=== PATIENT | male | born 1980 | race Caucasian/White ===

== ENCOUNTER 2020-09-12 07:22 | Day surgery (SDC) | payer OTHER ==
[~2020-09-12 07:22] MED LIST: Bupivacaine 0.5% 30 ML SDV ONE
[2020-09-12] MEDS ORDERED: ceFAZolin 2 GM in Premix Bag 1 BAG IV ONE (07:30)
[2020-09-12] MEDS ORDERED: Nozin Nasal Sanitizer NASBOTH ONE (07:30)
[2020-09-12] MEDS ORDERED: Lactated Ringers 1,000 ML IV SCH (08:30)
[2020-09-12] MEDS ORDERED: fentaNYL 250 MCG/5 ML SDV ONE (08:37)
[2020-09-12] MEDS ORDERED: Propofol 200 MG/20 ML SDV ONE (08:38)
[2020-09-12] MEDS ORDERED: Rocuronium 50 MG/5 ML Vial ONE (08:38)
[2020-09-12] MEDS ORDERED: Dexamethasone 4 MG/ML SDV ONE (08:38)
[2020-09-12] MEDS ORDERED: Succinylcholine 200 MG/10 ML MDV ONE (08:38)
[2020-09-12] MEDS ORDERED: Ondansetron 4 MG/2 ML SDV ONE (08:38)
[2020-09-12] MEDS ORDERED: Neostigmine Methylsulfate 1 MG/ML 5 ML Syringe ONE (08:38)
[2020-09-12] MEDS ORDERED: Glycopyrrolate 0.2 MG/ML 5 ML MDV ONE (08:38)
[2020-09-12] MEDS ORDERED: Midazolam 1 MG/ML 2 ML SDV ONE (09:50)
[2020-09-12] MEDS ORDERED: Acetaminophen/HYDROcodone 325-5 MG Tab PO ONE (12:30)
--- NOTE | 2020-09-25 17:23 | OR ---
DATE OF PROCEDURE: 09/12/2020 SURGEON: Waqar Bernstein MD PREOPERATIVE DIAGNOSES: 1. Medial meniscus tear, right knee. 2. Chronic patellar bursitis, right knee. POSTOPERATIVE DIAGNOSES: 1. Medial meniscus tear, a small posterior horn cleavage tear, right knee. 2. Chronic patellar bursitis. PROCEDURE: 1. Arthroscopy, right knee, with partial medial meniscectomy. 2. Open excision of patellar bursa. CNA HHA: SANJAY Duncan. ANESTHESIA: General. INDICATIONS: Panchito is a 40-year-old gentleman with a history of increasing medial knee pain with intermittent catching. He also has a history of chronic patellar bursitis which comes and goes in intensity, sometimes swelling up quite large and restricting his motion. Examination and imaging are consistent with a tear of the medial meniscus and a chronic bursitis. He now presents for arthroscopy of the knee with debridement of meniscus and open patellar bursectomy. Risks, benefits, potential complications of the procedure were discussed. PROCEDURE IN DETAIL: After adequate anesthesia was obtained, patient was placed supine with a tourniquet about the right upper thigh, right leg was prepped and draped in a sterile fashion. Leg was exsanguinated and tourniquet inflated to 300 mmHg pressure. A standard inferior, anterior, medial, and lateral portals were established. The patellofemoral groove was inspected, which revealed no evidence of articular cartilage damage to the patella or trochlea. Sweeping into the medial compartment, articular cartilage is intact and there is a small cleavage tear in the posterior horn as well as a mild fraying of the posterior root. Using a combination of a punch basket and shaver, posterior horn was debrided back to a stable margin. Minimal meniscal tissue was removed. All loose fragments were removed. Inspection then continued into the intercondylar notch, which revealed intact ACL and PCL. Lateral compartment showed no evidence of articular cartilage or meniscus damage. The knee was drained and scope was withdrawn. Attention then turned to the bursa where a longitudinal incision was made over the midportion of the knee and carried down into the bursa. This showed evidence of chronic bursitis with rolls and folds of synovium. Bursa was then resected using combination of 15 blade and Metzenbaum scissors. Once the bursa was fully resected, the tourniquet was deflated and bleeding was controlled with electrocautery. Incision was then closed with 2-0 Vicryl and a running 3-0 Monocryl and Steri-Strips. The arthroscopic port sites were closed with 3-0 Monocryl and Steri-Strips were applied. Prior to closure of the bursa, a small round drain was placed and brought out through a separate stab incision. Light compressive dressing was then applied and the drain was secured to a suction bulb. The patient tolerated procedure well, there were no complications, taken from the operating room in stable condition. Waqar Bernstein MD /[id number] [facility]ERI
== END 2020-09-12 13:09 | disposition home or self-care (01) ==
LOC: JP.SDS 07:22
PROVIDERS: ATTEND Specialist
DX: S83.241A Other tear of medial meniscus, current injury, right knee, initial encounter (principal); M70.41 Prepatellar bursitis, right knee; F17.200 Nicotine dependence, unspecified, uncomplicated
CPT/HCPCS: 27340; 29881; 36415; 80048; 85027; A9270; J0690; J1100; J2250; J2405; J2704; J3010; J3490; J7120; J0330; J2710

== ENCOUNTER → 2021-12-08 | Day surgery (SDC) | payer OTHER ==
[~2021-12-08] MED LIST changes: -Bupivacaine 0.5% 30 ML SDV ONE; +Bupivacaine 0.5% 50 ML MDV ONE; +Diphtheria,Pertussis(Acell),Tetanus Vaccine 0.5 ML Syringe IM ONE; +Lidocaine 1% 5 ML VIAL INJECT ONE; +Lidocaine 1% with EPINEPHrine 1:100,000 50 ML MDV ONE; +Midazolam 1 MG/ML 2 ML SDV ONE; +Propofol 200 MG/20 ML SDV ONE; +ceFAZolin 1 GM Vial ONE; +fentaNYL 100 MCG/2 ML SDV ONE
== END ==
LOC: JP.ED 14:18 → JP.SDS 16:55
PROVIDERS: ATTEND Surgery
DX: S70.352A Superficial foreign body, left thigh, initial encounter (principal); Z01.812 Encounter for preprocedural laboratory examination; Z20.822 Contact with and (suspected) exposure to COVID-19; X58.XXXA Exposure to other specified factors, initial encounter
CPT/HCPCS: 10121; 73552-LT; 76000; 90471; 90715; 99283; 99284-25; J0690; J2250; J2704; J3010; J3490; U0002

== ENCOUNTER 2024-02-18 11:30 | Emergency (ER) | payer OTHER | END 2024-02-18 12:44 | disposition home or self-care (01) | LOC: JP.ED 11:30 | DX: L02.12 Furuncle of neck (principal); Z88.8 Allergy status to other drugs, medicaments and biological substances | CPT/HCPCS: 99283 ==

== ENCOUNTER 2024-02-23 07:14 | Inpatient (IN) | payer OTHER ==
[2024-02-23] MEDS: Sodium Chloride 0.9% 1,000 ML IV SCH ×2 (07:42→09:02)
[2024-02-23 07:44] LABS: BASOPHILS ABSOLUTE AUTO 0.05 K/uL (0.00-0.10); BASOPHILS PERCENT AUTO 0.7 % (0.1-1.3); EOSINOPHILS ABSOLUTE AUTO 0.11 K/uL (0.00-0.40); EOSINOPHILS PERCENT AUTO 1.4 % (0.0-5.4); HEMATOCRIT 40.4 % (38.4-49.7); HEMOGLOBIN 14.5 g/dL (12.9-16.9); IMMATURE GRAN ABSOLUTE AUTO 0.02 K/uL (0.00-0.23); IMMATURE GRAN PERCENT AUTO 0.3 % (0.0-0.7); LYMPHOCYTES ABSOLUTE AUTO 0.92 K/uL (0.8-3.3); MEAN CORPUSCULAR HEMOGLOBIN 31.3 pg (31.6-35.5); MEAN CORPUSCULAR HGB CONC 35.9 g/dL (31.6-35.5); MEAN CORPUSCULAR VOLUME 87.3 fL (81.4-99.0); MONOCYTES ABSOLUTE AUTO 0.98 K/uL (0.20-0.90); MONOCYTES PERCENT AUTO 12.8 % (3.3-12.6); NEUTROPHILS ABSOLUTE AUTO 5.57 K/uL (1.0-7.6); NEUTROPHILS PERCENT AUTO 72.8 % (40.0-78.1); PLATELET COUNT,PLT 299 K/uL (130-375); RED BLOOD CELL COUNT 4.63 M/uL (4.14-5.76); WHITE BLOOD CELL COUNT,WBC 7.7 K/uL (3.2-11.0)
[2024-02-23] MEDS: Ondansetron 4 MG/2 ML SDV IVPUSH ONE (07:44)
[2024-02-23] MEDS: Ketorolac 15 MG/ML SDV IVPUSH ONE (07:47)
[2024-02-23 07:54] LABS: ALANINE AMINOTRANSFERASE,ALT 32 U/L (12-78); ALBUMIN 3.7 g/dL (3.4-5.0); ALKALINE PHOSPHATASE 87 U/L (46-116); ASPARTATE AMNIOTRANSFERASE,AST 19 U/L (15-37); BILIRUBIN TOTAL 0.2 mg/dL (0.2-1.0); BLOOD UREA NITROGEN,BUN 7 mg/dL (7-18); CALCIUM 8.6 mg/dL (8.5-10.1); CARBON DIOXIDE,CO2 24 mmol/L (21-32); CHLORIDE,CL 104 mmol/L (100-108); CREATININE 0.9 mg/dL (0.8-1.3); EST CRCL DRUG DOSING (CG) 99.75 mL/min; ESTIMATED GFR 107 mL/min (>60); GLUCOSE RANDOM 107 mg/dL (74-106); POTASSIUM,K 4.2 mmol/L (3.6-5.2); PROTEIN TOTAL,TP 7.5 g/dL (6.4-8.2); SODIUM,NA 139 mmol/L (140-148)
[2024-02-23 07:56] LABS: ANION GAP 15.2 mmol/L (5.0-14.0)
[2024-02-23 08:16] LABS: LACTIC ACID 1.3 mmol/L (0.4-2.0)
[2024-02-23] MEDS: Acetaminophen 500 MG Tab PO ONE (08:25)
[2024-02-23] MEDS: Clindamycin in 0.9 % Sod Chlor 600 MG in Premix Bag 1 BAG IV ONE (08:26)
[2024-02-23] MEDS: HYDROmorphone 0.5 MG/0.5 ML Syringe IVPUSH ONE (09:02)
[2024-02-23] MEDS ORDERED: Ondansetron 4 MG Tab.DIS PO PRN ×2 (09:49→09:51)
[2024-02-23] MEDS ORDERED: LORazepam 2 MG/ML SDV IVPUSH PRN ×2 (09:49→09:51)
[2024-02-23] MEDS ORDERED: Sennosides/Docusate Sodium 50-8.6 MG Tab PO PRN ×2 (09:49→09:51)
[2024-02-23] MEDS ORDERED: Magnesium Hydroxide 400 MG/5 ML Susp 30 ML Cup PO PRN ×2 (09:49→09:51)
[2024-02-23] MEDS ORDERED: Ondansetron 4 MG/2 ML SDV IV PRN ×2 (09:49→09:51)
[2024-02-23] MEDS ORDERED: Acetaminophen 325 MG Tab PO PRN (09:51)
[2024-02-23] MEDS ORDERED: Piperacillin/Tazobactam 4.5 GM in Sodium Chloride 0.9% 100 ML IV SCH (10:00)
[2024-02-23] MEDS: Piperacillin/Tazobactam/Dext 4.5 GM in Premix Bag 1 BAG IV ONE (10:47)
[2024-02-23] MEDS ORDERED: Acetaminophen/HYDROcodone 325-7.5 MG Tab PO PRN (10:53)
[2024-02-23] MEDS: Acetaminophen 325 MG Tab PO PRN (10:53)
[2024-02-23] MEDS: HYDROmorphone 2 MG Tab PO PRN (11:32)
[2024-02-23 11:42] LABS: APPEARANCE,URINE CLEAR (CLEAR); BILIRUBIN,URINE NEGATIVE (NEGATIVE); COLOR,URINE YELLOW (YELLOW); GLUCOSE,URINE NEGATIVE (NEGATIVE); KETONES,URINE NEGATIVE (NEGATIVE); LEUKOCYTE ESTERASE,URINE NEGATIVE (NEGATIVE); NITRITE,URINE NEGATIVE (NEGATIVE); OCCULT BLOOD,URINE NEGATIVE (NEGATIVE); PROTEIN,URINE NEGATIVE (NEGATIVE); UROBILINOGEN,URINE 0.2 EU/dL (0.2-1.0)
[2024-02-23 11:52] LABS: AMORPHOUS SEDIMENT,URINE NOT SEEN; BACTERIA,URINE NOT SEEN; EPITHELIAL CELLS,URINE NOT SEEN; MUCUS,URINE NOT SEEN; RBC,URINE 0-5 (0-5); WBC,URINE NOT SEEN (0-5)
[2024-02-23] MEDS: Piperacillin/Tazobactam/Dext 4.5 GM in Premix Bag 1 BAG IV SCH (14:49)
[2024-02-23] MEDS: Ibuprofen 600 MG Tab PO PRN (17:26)
[2024-02-23] MEDS: Sodium Chloride 0.9% 80 ML IV SCH (20:39)
[2024-02-23] MEDS: Iopamidol 612 MG/ML 100 ML Bottle IV SCH (20:40)
[2024-02-23] MEDS: Ketorolac 15 MG/ML SDV IVPUSH PRN (20:48)
[2024-02-24] MEDS: Acetaminophen 1,000 MG in Premix Bag 1 BAG IV ONE (05:19)
[2024-02-24 07:45] LABS: HEMATOCRIT 35.6 % (38.4-49.7); HEMOGLOBIN 12.4 g/dL (12.9-16.9); MEAN CORPUSCULAR HEMOGLOBIN 30.6 pg (31.6-35.5); MEAN CORPUSCULAR HGB CONC 34.8 g/dL (31.6-35.5); MEAN CORPUSCULAR VOLUME 87.9 fL (81.4-99.0); RED BLOOD CELL COUNT 4.05 M/uL (4.14-5.76); WHITE BLOOD CELL COUNT,WBC 6.2 K/uL (3.2-11.0)
[2024-02-24 08:05] LABS: A/G RATIO 0.9 (1.2-2.2); ALANINE AMINOTRANSFERASE,ALT 27 U/L (12-78); ALBUMIN 3.2 g/dL (3.4-5.0); ALKALINE PHOSPHATASE 77 U/L (46-116); ASPARTATE AMNIOTRANSFERASE,AST 19 U/L (15-37); BILIRUBIN TOTAL 0.3 mg/dL (0.2-1.0); BLOOD UREA NITROGEN,BUN 5 mg/dL (7-18); C-REACTIVE PROTEIN 7.28 mg/dL (<0.50); CALCIUM 8.3 mg/dL (8.5-10.1); CARBON DIOXIDE,CO2 28 mmol/L (21-32); CHLORIDE,CL 103 mmol/L (100-108); EST CRCL DRUG DOSING (CG) 90.25 mL/min; ESTIMATED GFR 95 mL/min (>60); GLUCOSE RANDOM 99 mg/dL (74-106); POTASSIUM,K 3.6 mmol/L (3.6-5.2); PROTEIN TOTAL,TP 6.8 g/dL (6.4-8.2); SODIUM,NA 139 mmol/L (140-148)
[2024-02-24 08:08] LABS: ANION GAP 11.6 mmol/L (5.0-14.0)
[2024-02-24] MEDS: methylPREDNISolone Sodium Succinate 40 MG/1 ML SDV IVPUSH ONE (11:21)
[2024-02-25 05:49] LABS: HEMATOCRIT 36.8 % (38.4-49.7); HEMOGLOBIN 12.9 g/dL (12.9-16.9); MEAN CORPUSCULAR HEMOGLOBIN 30.8 pg (31.6-35.5); MEAN CORPUSCULAR HGB CONC 35.1 g/dL (31.6-35.5); MEAN CORPUSCULAR VOLUME 87.8 fL (81.4-99.0); RED BLOOD CELL COUNT 4.19 M/uL (4.14-5.76); WHITE BLOOD CELL COUNT,WBC 6.3 K/uL (3.2-11.0)
[2024-02-25 06:10] LABS: A/G RATIO 0.9 (1.2-2.2); ALANINE AMINOTRANSFERASE,ALT 32 U/L (12-78); ALBUMIN 3.1 g/dL (3.4-5.0); ALKALINE PHOSPHATASE 68 U/L (46-116); ANION GAP 12.2 mmol/L (5.0-14.0); ASPARTATE AMNIOTRANSFERASE,AST 20 U/L (15-37); BILIRUBIN TOTAL 0.2 mg/dL (0.2-1.0); BLOOD UREA NITROGEN,BUN 5 mg/dL (7-18); C-REACTIVE PROTEIN 6.04 mg/dL (<0.50); CALCIUM 8.3 mg/dL (8.5-10.1); CARBON DIOXIDE,CO2 26 mmol/L (21-32); CHLORIDE,CL 104 mmol/L (100-108); CREATININE 0.7 mg/dL (0.8-1.3); EST CRCL DRUG DOSING (CG) 128.93 mL/min; ESTIMATED GFR 116 mL/min (>60); GLUCOSE RANDOM 112 mg/dL (74-106); POTASSIUM,K 3.9 mmol/L (3.6-5.2); PROTEIN TOTAL,TP 6.7 g/dL (6.4-8.2); SODIUM,NA 142 mmol/L (140-148); VANCOMYCIN RANDOM 17.2 ug/mL (0.0-50.0)
[2024-02-25] MEDS: Doxycycline 100 MG Cap PO SCH (09:02)
[2024-02-26 05:14] LABS: HEMATOCRIT 36.6 % (38.4-49.7); HEMOGLOBIN 12.8 g/dL (12.9-16.9); MEAN CORPUSCULAR HEMOGLOBIN 31.1 pg (31.6-35.5); MEAN CORPUSCULAR VOLUME 89.1 fL (81.4-99.0); RED BLOOD CELL COUNT 4.11 M/uL (4.14-5.76); WHITE BLOOD CELL COUNT,WBC 6.6 K/uL (3.2-11.0)
[2024-02-26 05:31] LABS: A/G RATIO 0.9 (1.2-2.2); ALANINE AMINOTRANSFERASE,ALT 54 U/L (12-78); ALKALINE PHOSPHATASE 62 U/L (46-116); ANION GAP 9.7 mmol/L (5.0-14.0); ASPARTATE AMNIOTRANSFERASE,AST 32 U/L (15-37); BILIRUBIN TOTAL 0.1 mg/dL (0.2-1.0); BLOOD UREA NITROGEN,BUN 8 mg/dL (7-18); C-REACTIVE PROTEIN 2.92 mg/dL (<0.50); CALCIUM 8.2 mg/dL (8.5-10.1); CARBON DIOXIDE,CO2 28 mmol/L (21-32); CHLORIDE,CL 105 mmol/L (100-108); CREATININE 0.8 mg/dL (0.8-1.3); EST CRCL DRUG DOSING (CG) 112.81 mL/min; ESTIMATED GFR 111 mL/min (>60); GLUCOSE RANDOM 85 mg/dL (74-106); POTASSIUM,K 4.1 mmol/L (3.6-5.2); PROTEIN TOTAL,TP 6.4 g/dL (6.4-8.2); SODIUM,NA 143 mmol/L (140-148)
== END 2024-02-26 09:15 | disposition home or self-care (01) | DRG 603 ==
LOC: JP.ED 07:14 → JP.MS 08:17 → OBSVTOIN 02-24 14:59
PROVIDERS: ADMIT Hospitalist; ATTEND Hospitalist
DX: L03.221 Cellulitis of neck (principal); T63.301A Toxic effect of unspecified spider venom, accidental (unintentional), initial encounter; F17.210 Nicotine dependence, cigarettes, uncomplicated; Z79.899 Other long term (current) drug therapy; Z79.2 Long term (current) use of antibiotics; Z98.890 Other specified postprocedural states
CPT/HCPCS: 36415; 70491; 80053; 80202; 81001; 83605; 85025; 85027; 86140; 87040; 96365; 96366; 96367; 96375; 96376; 99222; 99231; 99239; 99283-25; A9270-GY; G0378; J0131; J1170; J1885; J2405; J2543; J2919; J3370; J3490; J7030; J7050; Q9967

== ENCOUNTER 2024-06-23 20:17 | Emergency (ER) | payer OTHER ==
[2024-06-23 21:24] LABS: BASOPHILS ABSOLUTE AUTO 0.04 K/uL (0.00-0.10); BASOPHILS PERCENT AUTO 0.4 % (0.1-1.3); EOSINOPHILS ABSOLUTE AUTO 0.15 K/uL (0.00-0.40); EOSINOPHILS PERCENT AUTO 1.5 % (0.0-5.4); HEMATOCRIT 40.3 % (38.4-49.7); IMMATURE GRAN ABSOLUTE AUTO 0.03 K/uL (0.00-0.23); IMMATURE GRAN PERCENT AUTO 0.3 % (0.0-0.7); LYMPHOCYTES ABSOLUTE AUTO 1.93 K/uL (0.8-3.3); LYMPHOCYTES PERCENT AUTO 19.1 % (11.4-47.7); MEAN CORPUSCULAR HEMOGLOBIN 31.3 pg (31.6-35.5); MEAN CORPUSCULAR HGB CONC 34.7 g/dL (31.6-35.5); MONOCYTES ABSOLUTE AUTO 1.27 K/uL (0.20-0.90); MONOCYTES PERCENT AUTO 12.6 % (3.3-12.6); NEUTROPHILS ABSOLUTE AUTO 6.66 K/uL (1.0-7.6); NEUTROPHILS PERCENT AUTO 66.1 % (40.0-78.1); PLATELET COUNT,PLT 310 K/uL (130-375); RED BLOOD CELL COUNT 4.48 M/uL (4.14-5.76); WHITE BLOOD CELL COUNT,WBC 10.1 K/uL (3.2-11.0)
[2024-06-23] MEDS: fentaNYL 100 MCG/2 ML SDV IVPUSH ONE (21:36)
[2024-06-23] MEDS: Sodium Chloride 0.9% 10 ML Syringe FLUSH PRN (21:40)
[2024-06-23] MEDS: cefTRIAXone 2 GM in Sodium Chloride 0.9% 50 ML IV ONE (21:40)
[2024-06-23 21:41] LABS: C-REACTIVE PROTEIN 1.38 mg/dL (<0.50); CALCIUM 9.3 mg/dL (8.5-10.1); CREATININE 0.9 mg/dL (0.8-1.3); EST CRCL DRUG DOSING (CG) 100.28 mL/min; POTASSIUM,K 3.9 mmol/L (3.6-5.2)
[2024-06-23 21:42] LABS: ANION GAP 13.9 mmol/L (5.0-14.0)
== END 2024-06-23 23:25 | disposition home or self-care (01) ==
LOC: JP.ED 20:17
DX: L03.114 Cellulitis of left upper limb (principal); F17.210 Nicotine dependence, cigarettes, uncomplicated; Z79.899 Other long term (current) drug therapy
CPT/HCPCS: 36415; 80048; 83605; 85025; 86140; 96365; 96375; 99283; J0696; J3010; J3490